=== PATIENT | male | born 1965 | race Hispanic/Latino ===

== ENCOUNTER 2017-09-08 12:17 | Emergency (ER) | payer MEDICAID ==
[2017-09-08] MEDS ORDERED: NACL 0.9% IR ONE (13:08)
--- NOTE | 2017-09-08 13:10 | Emergency Department Report ---
<MARIA LUZ SHELDON - Last Filed: 09/08/17 17:40> ED Lower Extremity HPI - General Chief Complaint: Wound/Laceration Stated Complaint: CUT TOE Time Seen by Provider: 09/08/17 13:01 Source: patient, RN notes reviewed Mode of arrival: Stretcher Limitations: No Limitations - History of Present Illness Initial Comments: This is a 51-year-old male, primary care doctor is Dr. Wise, up-to-date with vaccinations including tetanus vaccination, who presents to the ER with a complaint of left dorsal toe laceration after a chain saw accidentally landed on his foot. He has no other injuries or complaints, and complains of sharp burning pain on the dorsal aspect of his foot/distal toe, which increases with palpation and decreases with rest and does not radiate anywhere. He has decreased dorsiflexion of the left toe, but does report sensation intact to pain. Has no other injuries, no other complaints. MD Complaint: foot injury -: Sudden, minutes(s) Injury: Toes: Left Type of Injury: laceration Place: street/outdoors Severity: moderate Improves With: rest Worsens With: movement, palpation Context: other (see history of present illness) - Related Data Home Medications Medication Instructions Recorded Confirmed Last Taken Albuterol Sulfate [Albuterol 0.63% 0.63 mg IH TID PRN 10/12/15 11/05/15 11/03/15 NEBS] Budesoni/Formotero 160-4.5(Nf) 2 puff IH BID 10/12/15 11/05/15 11/03/15 [Symbicort 160-4.5 (Nf)] Loratadine [Allergy Relief] 10 mg PO DAILY 10/12/15 11/05/15 11/03/15 Montelukast [Singulair] 10 mg PO QPM 10/12/15 11/05/15 11/03/15 Ciprofloxacin HCl [Ciprofloxacin 500 mg PO BID 11/05/15 11/05/15 11/05/15 08:00 TAB] Oxycodone HCl/Acetaminophen 5 - 325 mg PO Q4-6H PRN 11/05/15 11/05/15 11/04/15 [Oxycodone-Acetaminophen 5-325] Oxycodone HCl/Acetaminophen 1 each PO Q6HR PRN 11/05/15 11/05/1511/04/16 09:15 [Percocet 7.5/325 mg] Previous Rx's Medication Instructions Recorded Last Taken Type Acetaminophen [Tylenol Arthritis] 650 mg PO Q6HR PRN #30 tablet.er 09/08/17 Unknown Rx Doxycycline [Vibramycin] 100 mg PO Q12HR #10 capsule 09/08/17 Unknown Rx Ibuprofen [Motrin] 600 mg PO Q8H PRN #30 tablet 09/08/17 Unknown Rx oxyCODONE [Roxicodone] 5 mg PO Q6HR PRN #15 tablet 09/08/17 Unknown Rx Allergies Allergy/AdvReac Type Severity Reaction Status Date / Time No Known Allergies Allergy Verified 11/05/15 12:25 ED Review of Systems ROS: Stated complaint: CUT TOE Other details as noted in HPI Constitutional: denies: fever Eyes: denies: eye discharge ENT: denies: epistaxis Respiratory: denies: cough Cardiovascular: denies: chest pain Gastrointestinal: denies: abdominal pain Skin: lesions Neurological: denies: weakness ED Past Medical Hx - Past Medical History Hx Hypertension: ("ELEVATES AT TIMES WHEN I USE MY INHALERS, NEVER DIAGNOSED") Hx GERD: Yes Hx Renal Disease: Yes (kidney stones) Hx Kidney Stones: Yes Hx Asthma: Yes Hx COPD: Yes Hx HIV: No - Surgical History Hx Appendectomy: Yes - Social History Smoking Status: Never Smoker Substance Use Type: None - Medications Home Medications: Home Medications Medication Instructions Recorded Confirmed Last Taken Type Albuterol Sulfate [Albuterol 0.63% 0.63 mg IH TID PRN 10/12/15 11/05/15 History NEBS] Budesoni/Formotero 160-4.5(Nf) 2 puff IH BID 10/12/15 11/05/15 11/03/15 History [Symbicort 160-4.5 (Nf)] Loratadine [Allergy Relief] 10 mg PO DAILY 10/12/15 11/05/15 11/03/15 History Montelukast [Singulair] 10 mg PO QPM 10/12/15 11/05/15 11/03/15 History Ciprofloxacin HCl [Ciprofloxacin 500 mg PO BID 11/05/15 11/05/15 11/05/15 08:00 History TAB] Oxycodone HCl/Acetaminophen 5 - 325 mg PO Q4-6H PRN 11/05/15 11/05/15 11/04/15 History [Oxycodone-Acetaminophen 5-325] Oxycodone HCl/Acetaminophen 1 each PO Q6HR PRN 11/05/15 11/05/15 11/05/15 09:15 History [Percocet 7.5/325 mg] Acetaminophen [Tylenol Arthritis] 650 mg PO Q6HR PRN #30 tablet.er 09/08/17 Unknown Rx Doxycycline [Vibramycin] 100 mg PO Q12HR #10 capsule 09/08/17 Unknown Rx Ibuprofen [Motrin] 600 mg PO Q8H PRN #30 tablet 09/08/17 Unknown Rx oxyCODONE [Roxicodone] 5 mg PO Q6HR PRN #15 tablet 09/08/17 Unknown Rx ED Physical Exam - General Limitations: Physical Limitation General appearance: alert, in no apparent distress - Head Head exam: Present: atraumatic, normocephalic - Eye Eye exam: Present: normal appearance, EOMI. Absent: nystagmus - ENT ENT exam: Present: normal exam, normal orophraynx, mucous membranes moist, normal external ear exam - Neck Neck exam: Present: normal inspection, full ROM - Respiratory Respiratory exam: Present: normal lung sounds bilaterally. Absent: respiratory distress - Cardiovascular Cardiovascular Exam: Present: regular rate, normal rhythm, normal heart sounds. Absent: systolic murmur, diastolic murmur, rubs, gallop - GI/Abdominal GI/Abdominal exam: Present: soft, normal bowel sounds. Absent: distended, tenderness, guarding, rebound, rigid, pulsatile mass - Rectal Rectal exam: Present: deferred - Extremities Exam Extremities exam: Present: tenderness, normal capillary refill, other (2+ pulses noted in the bilateral upper, lower extremities. Compartments soft.). Absent: normal inspection (the bilateral upper extremities are within normal limits in the right lower extremity is within normal limits. On the superior lateral/dorsal aspect of the left foot, there is a circumferential laceration noted around toe #5, and superficial lacerations noted on the dorsal lateral aspect of the foot. There is no pulsatile bleeding. No obvious foreign bodies noted. Patient is able to abduct/adduct left 5th toe, but has difficulty with dorsi and plantar flexion of the left toe.), full ROM, pedal edema, joint swelling, calf tenderness - Back Exam Back exam: Present: normal inspection, full ROM. Absent: paraspinal tenderness , vertebral tenderness - Neurological Exam Neurological exam: Present: alert, oriented X3, CN II-XII intact, other ( Extraocular movements intact. Tongue midline. No facial droop. Facial sensation intact to light touch in the V1, V2, V3 distribution bilaterally. 5 and 5 strength in 4 extremities.. Sensation is intact to light touch in 4 extremities.). Absent: motor sensory deficit - Psychiatric Psychiatric exam: Present: anxious - Skin Skin exam: Present: warm, dry, intact, normal color. Absent: rash ED Course Vital Signs 09/08/17 09/08/17 09/08/17 12:58 13:03 15:40 Temperature 98.0 F Pulse Rate 75 70 Respiratory 17 17 17 Rate Blood Pressure 106/76 Blood Pressure 118/77 [Right] O2 Sat by Pulse 96 96 97 Oximetry - Reevaluation(s) Reevaluation #1: 09/08/17 17:42 Differential diagnosis, including but not limited to: Laceration, tendon violation Assessment and plan: 51-year-old male status post accidental chainsaw injury to left dorsal foot and left fifth toe. He has no other obvious injuries, no other obvious wounds, as no evidence of arterial bleed. Possible tendon violation. He is up-to-date with tetanus vaccination. He reports intolerance to penicillin. The laceration was repaired by the nurse practitioner, patient will be made nonweightbearing, he will be given a hard sole shoe, and he is instructed to follow-up with his outpatient orthopedist within the next week for possible tendon repair. He verbalized understanding. ED Lower Extremity MDM - Lab Data Vital Signs 09/08/17 09/08/17 09/08/17 12:58 13:03 15:40 Temperature 98.0 F Pulse Rate 75 70 Respiratory 17 17 17 Rate Blood Pressure 106/76 Blood Pressure 118/77 [Right] O2 Sat by Pulse 96 96 97 Oximetry - Radiology Data Radiology results: report reviewed, image reviewed X-ray of the foot demonstrates soft tissue swelling, no obvious foreign body. Critical care attestation.: If time is entered above; I have spent that time in minutes in the direct care of this critically ill patient, excluding procedure time. ED Disposition Disposition: -01 TO HOME OR SELFCARE Is pt being admited?: No Does the pt Need Aspirin: No Condition: Stable Instructions: Suture Care (ED), Laceration (ED) Additional Instructions: Wash the wound with gentle soap and water every 12 hours starting tomorrow. Remain non-weight bearing, and use the crutches as directed. Have the wound inspected by a medical professional in 2-3 days. Follow-up with an orthopedist within the next 3-5 days. It is possible that the patient has a possible tendon violation of the left toe, and not following up with outpatient orthopedics, foot and ankle or podiatry for evaluation outpatient tendon repair may result in disability, loss of functionality, loss of range of motion. Please return to the ER right away with 2 pain, worsened pain, migration of pain , fevers, chills, lethargy, irritability, projectile vomiting, change in mental status, confusion, inability to tolerate liquid feeds. Prescriptions: Acetaminophen [Tylenol Arthritis] 650 mg PO Q6HR PRN #30 tablet.er PRN Reason: Pain Doxycycline [Vibramycin] 100 mg PO Q12HR #10 capsule Ibuprofen [Motrin] 600 mg PO Q8H PRN #30 tablet PRN Reason: Pain oxyCODONE [Roxicodone] 5 mg PO Q6HR PRN #15 tablet PRN Reason: Pain Referrals: PRIMARY CARE, [Primary Care Provider] - 3-5 Days OSCAR PARRA MD [Staff Physician] - 3-5 Days SMILEY HILLIARD DPM [Staff Physician] - 3-5 Days RUTH SINGH MD [Staff Physician] - 3-5 Days <KEN BLOCK - Last Filed: 09/08/17 17:57> - Laceration /Wound Repair Left Anterior Lateral Dorsal Foot Wound Location: lower extremity (left anterior lateral dorsal from 4th MP to 5th MP, extend to 5th plantar) Wound Length (cm): 6 Wound's Depth, Shape: into muscle, irregular, flap Wound Explored: no foreign body removed Irrigated w/ Saline (ccs): 5 Betadine Prep?: Yes Anesthesia: 1% Lidocaine (2% lidocaine without epi) Volume Anesthetic (ccs): 5 Wound Debrided: minimal Wound Repaired With: sutures Suture Size/Type: 4:0 Number of Sutures: 20 Layer Closure?: No Sterile Dressing Applied?: Yes
[2017-09-08] MEDS ORDERED: NACL 0.9% 500 ML IR ONE (13:14)
[2017-09-08] MEDS ORDERED: XYLOCAINE 2%/EPI 1:100,000 INFILTRATI ONE (13:14)
[2017-09-08] MEDS: BETADINE TP SCH ×2 (13:20→13:35)
[2017-09-08] MEDS: XYLOCAINE 2% INFILTRATI ONE ×2 (13:20→13:35)
[2017-09-08] MEDS ORDERED: XYLOCAINE 2% INFILTRATI ONE (13:30)
[2017-09-08] MEDS ORDERED: KETAMINE HCL IV ONE (13:31)
[2017-09-08] MEDS: KETALAR IV ONE ×2 (13:34→16:37)
--- NOTE | 2017-09-08 13:49 | XRay Report ---
LEFT FOOT, 2 views: History: Laceration. The bony architecture is intact. Bony alignment is normal. No soft tissue abnormalities are seen. The joint spaces appear preserved. Small plantar spur is noted. IMPRESSION: Unremarkable left foot.
[2017-09-08] MEDS ORDERED: XYLOCAINE TOPICAL 2% 30ML TP ONE (14:09)
[2017-09-08] MEDS ORDERED: SUBLIMAZE IV ONE (15:23)
[2017-09-08 15:41] VITALS: BP 118/77
[2017-09-08] MEDS ORDERED: MORPHINE ONE (16:42)
[2017-09-08] MEDS ORDERED: ZOFRAN ONE (16:48)
[2017-09-08] MEDS ORDERED: MORPHINE IV ONE (17:01)
[2017-09-08] MEDS ORDERED: ZOFRAN IV ONE (17:01)
== END 2017-09-08 18:16 | disposition home or self-care (01) ==
LOC: ED 12:17
DX: S91.115A Laceration without foreign body of left lesser toe(s) without damage to nail, initial encounter (principal); K21.9 Gastro-esophageal reflux disease without esophagitis; J45.909 Unspecified asthma, uncomplicated; Z87.442 Personal history of urinary calculi; Z90.89 Acquired absence of other organs; W26.8XXA Contact with other sharp object(s), not elsewhere classified, initial encounter; Y93.89 Activity, other specified; Y92.89 Other specified places as the place of occurrence of the external cause; Y99.8 Other external cause status
CPT/HCPCS: 12002; 73620; 96374; 96375; 99284; J2270; J2405; J3010